=== PATIENT | female | born 1980 | race Caucasian/White ===

== ENCOUNTER 2022-12-29 15:25 | Outpatient (CLI) | payer BC, SELFPAY | END 2022-12-29 15:26 | disposition home or self-care (01) | LOC: NFLDREF 15:25 | PROVIDERS: PCP Family Medicine; Visit Provider Physician Assistant | DX: E28.39 Other primary ovarian failure (principal) | CPT/HCPCS: 83001 ==

== ENCOUNTER 2022-12-30 14:42 | Outpatient (CLI) | payer BC, SELFPAY ==
--- NOTE | 2022-12-30 15:00 | CRLHL7_ITS ---
For Patients: As a result of the Century Cures Act, medical imaging exams and procedure reports are released immediately into your electronic medical record. You may view this report before your referring provider. If you have questions, please contact your health care provider. CLINICAL HISTORY: PAIN/CRAMPING WITH IUD TECHNIQUE: 2D nayak scale ultrasound. In addition color Doppler and spectral Doppler analysis was performed of the pelvis using a transvaginal approach. FINDINGS: On transvaginal imaging, the myometrium has a normal uniform echotexture. IUD is present within the endometrial canal. The right ovary measures 2.3 x 2.0 x 1.5 cm in size and the left ovary measures 2.2 x 1.1 x 1.5 cm. The ovaries demonstrate normal arterial and venous blood flow on color Doppler and spectral Doppler analysis. There are no suspicious fluid collections within the cul-de-sac. IMPRESSION: Good position of the intrauterine device within the endometrial canal. Normal ovaries. No torsion or adnexal mass. Dictated by Paul Jorgensen MD @ 12/31/2022 9:41:32 AM (Electronically Signed)
== END 2022-12-30 14:43 | disposition home or self-care (01) ==
PROVIDERS: PCP Family Medicine; Visit Provider Physician Assistant
DX: R10.2 Pelvic and perineal pain (principal); E28.39 Other primary ovarian failure
CPT/HCPCS: 76830; 93976